=== PATIENT | female | born 1955 | race Caucasian/White ===

== ENCOUNTER → 2017-01-23 | Outpatient (CLI) | payer OTHER | LOC: CIMAGING 08:13 | DX: Z12.31 Encounter for screening mammogram for malignant neoplasm of breast (principal) | CPT/HCPCS: G0202 ==

== ENCOUNTER → 2018-07-17 | Outpatient (CLI) | payer OTHER | LOC: CIMAGING 14:54 | PROVIDERS: ATTEND Internal Medicine | DX: Z12.31 Encounter for screening mammogram for malignant neoplasm of breast (principal) ==